=== PATIENT | male | born 1985 | race Two or more races ===

== ENCOUNTER 2020-01-29 00:34 | Emergency (ER) | payer SELFPAY ==
[~2020-01-29] VITALS: Ht 175.3 cm; Wt 81.6 kg
[2020-01-29 02:37] LABS: Amphetamine Screen, Urine NEGATIVE (NEGATIVE); Barbiturate Scree,Urine NEGATIVE (NEGATIVE); Benzodiazephine Screen, Urine NEGATIVE (NEGATIVE); Cannabinoid Screen, Urine NEGATIVE (NEGATIVE); Cocaine Screen, Urine NEGATIVE (NEGATIVE); Opiate Scree,Urine NEGATIVE (NEGATIVE); Phencyclidine Screen, Urine NEGATIVE (NEGATIVE)
[2020-01-29 03:00] VITALS: BP 130/70
== END 2020-01-29 04:15 | disposition home or self-care (01) ==
LOC: EDBD 00:34 → ER 00:37
DX: R41.82 Altered mental status, unspecified (principal); F10.920 Alcohol use, unspecified with intoxication, uncomplicated; V49.9XXA Car occupant (driver) (passenger) injured in unspecified traffic accident, initial encounter; Y93.89 Activity, other specified; Y92.89 Other specified places as the place of occurrence of the external cause; Y99.8 Other external cause status
CPT/HCPCS: 70450; 70486; 72125; 80307